=== PATIENT | female | born 1935 | race Two or more races ===

== ENCOUNTER 2017-04-09 12:11 | Emergency (ER) | payer MEDICARE, MEDICAID ==
[2017-04-09] MEDS: ACETAMINOPHEN 325 MG TAB PO (13:59)
== END 2017-04-09 15:56 | disposition home or self-care (01) ==
LOC: FTE 12:11
DX: J06.9 Acute upper respiratory infection, unspecified (principal); E11.9 Type 2 diabetes mellitus without complications
CPT/HCPCS: 71045; 99283-25